=== PATIENT | male | born 1995 | race Caucasian/White ===

== ENCOUNTER 2023-12-10 13:10 | Inpatient (IN) | payer BC, MEDICAID, SELFPAY ==
[2023-12-10 13:21] VITALS: BP 135/78; PULSE 60; RESP 17; TEMP 36.6; O2SAT 100
[2023-12-10 13:30] VITALS: BMI 26.6
[2023-12-10] MEDS: calcium carbonate 500 mg Chew Tablet 1000 MG PO ×2 (13:50→23:49)
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
[2023-12-10 20:55] VITALS: BP 138/78; PULSE 68; RESP 16; TEMP 37.2; O2SAT 97
[2023-12-10] MEDS: divalproex DR 250 mg Tablet PO (21:24)
--- NOTE | 2023-12-11 06:21 | PC.NURSE ---
pt vs not collected nurse notified resp 18
[2023-12-11] MEDS: calcium carbonate 500 mg Chew Tablet 1000 MG PO ×3 (07:23→20:49)
[2023-12-11] MEDS: divalproex DR 250 mg Tablet PO ×3 (09:09→20:49)
[2023-12-11 14:00] VITALS: BP 120/78; PULSE 102; RESP 18; TEMP 37; O2SAT 98
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
[2023-12-11 20:43] VITALS: BP 124/78; PULSE 58; RESP 16; TEMP 36.8; O2SAT 99
[2023-12-12 04:30] VITALS: BP 128/64; PULSE 68; RESP 16; TEMP 36.9; O2SAT 97
[2023-12-12] MEDS: calcium carbonate 500 mg Chew Tablet 1000 MG PO ×2 (05:22→09:33)
[2023-12-12] MEDS: divalproex DR 250 mg Tablet PO ×3 (07:54→21:45)
[2023-12-12 14:00] VITALS: BP 103/67; PULSE 80; RESP 16; TEMP 36.7; O2SAT 98
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
[2023-12-12 20:58] VITALS: BP 113/76; PULSE 62; RESP 18; TEMP 37.2; O2SAT 98
[2023-12-12] MEDS: alum-mag-hydroxide-sime 30 mL UDC PO (21:45)
[2023-12-13] MEDS: calcium carbonate 500 mg Chew Tablet 1000 MG PO ×5 (00:53→19:10)
[2023-12-13 06:00] VITALS: BP 119/73; PULSE 94; RESP 18; TEMP 36.9; O2SAT 99
[2023-12-13] MEDS: divalproex DR 250 mg Tablet PO ×3 (08:35→19:10)
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
[2023-12-13 14:00] VITALS: BP 125/78; PULSE 78; RESP 16; TEMP 36.7; O2SAT 99
[2023-12-13] MEDS: pantoprazole DR 40 mg Tablet PO (19:10)
[2023-12-13 21:05] VITALS: BP 128/86; PULSE 74; RESP 18; TEMP 36.7; O2SAT 99
[2023-12-14 06:00] VITALS: BP 129/80; PULSE 107; RESP 17; TEMP 36.7; O2SAT 97
[2023-12-14] MEDS: divalproex DR 250 mg Tablet PO ×3 (10:18→20:04)
[2023-12-14] MEDS: pantoprazole DR 40 mg Tablet PO (10:19)
[2023-12-14 14:00] VITALS: BP 124/82; PULSE 75; RESP 16; TEMP 36.6; O2SAT 98
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
[2023-12-14 19:58] VITALS: BP 119/73; PULSE 76; RESP 17; TEMP 36.9; O2SAT 99
[2023-12-15] MEDS: calcium carbonate 500 mg Chew Tablet 1000 MG PO ×2 (03:18→20:02)
[2023-12-15 06:00] VITALS: BP 113/69; PULSE 73; RESP 17; TEMP 36.7; O2SAT 98
[2023-12-15] MEDS: divalproex DR 250 mg Tablet PO ×3 (09:05→20:00)
[2023-12-15] MEDS: pantoprazole DR 40 mg Tablet PO (09:05)
[2023-12-15 14:00] VITALS: BP 113/77; PULSE 69; RESP 18; TEMP 36.6; O2SAT 99
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
[2023-12-15 19:36] VITALS: BP 117/77; PULSE 69; RESP 16; TEMP 36.6; O2SAT 99
[2023-12-16] MEDS: calcium carbonate 500 mg Chew Tablet 1000 MG PO (00:33)
[2023-12-16 06:00] VITALS: BP 135/73; PULSE 82; RESP 18; TEMP 36.6; O2SAT 98
[2023-12-16] MEDS: pantoprazole DR 40 mg Tablet PO (08:27)
[2023-12-16] MEDS: divalproex DR 250 mg Tablet PO ×3 (08:27→20:19)
[2023-12-16 14:00] VITALS: BP 119/78; PULSE 80; RESP 16; TEMP 36.6; O2SAT 98
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
[2023-12-16] MEDS: haloperidol decanoate 100 mg/mL INJ 1 mL 50 MG IM (17:38)
[2023-12-16 19:22] VITALS: BP 129/81; PULSE 69; RESP 18; TEMP 36.6; O2SAT 98
[2023-12-17 06:00] VITALS: BP 122/76; PULSE 76; RESP 16; TEMP 36.5; O2SAT 98
[2023-12-17] MEDS: divalproex DR 250 mg Tablet PO ×3 (09:21→21:09)
[2023-12-17] MEDS: pantoprazole DR 40 mg Tablet PO (09:21)
[2023-12-17 14:00] VITALS: BP 108/70; PULSE 71; RESP 16; TEMP 36.6; O2SAT 99
[2023-12-17 14:59] VITALS: BP 108/70; PULSE 71; RESP 16; TEMP 36.6; O2SAT 99
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
[2023-12-17 19:45] VITALS: BP 113/74; PULSE 70; RESP 18; TEMP 36.7; O2SAT 98
[2023-12-18 06:00] VITALS: BP 100/61; PULSE 72; RESP 16; TEMP 36.7; O2SAT 97
[2023-12-18] MEDS: pantoprazole DR 40 mg Tablet PO (09:16)
[2023-12-18] MEDS: divalproex DR 250 mg Tablet PO (09:16)
[2023-12-18 11:35] VITALS: BP 100/61; PULSE 72; RESP 16; TEMP 36.7; O2SAT 97
--- NOTE | 2023-12-18 11:39 | W.PM.NPUDCS ---
Diagnoses at Discharge Discharge Diagnosis (1) Intermittent explosive disorder in adult: Status: Acute Reason for Visit Reason for Visit: SI Involuntary Hold Information 96 Hour Hold: 96 Hour Involuntary Admission: No Mental Status Exam MSE Comments: This is a well-nourished well-developed short white male in hospital scrubs with limited grooming and eye contact. Notable tattooing on exposed skin including neck. No abnormal movements except for psychomotor retardation. Mostly cooperative with exam in mild distress. Speech was decreased rate and volume somewhat monotone. Mood described as okay, affect congruent and somewhat less odd. Thought process linear. Thought content: Patient denied suicidal or homicidal ideation, there were no delusions reported but he did appear less guarded, he denied any auditory or visual hallucinations but did not appear to be attending to internal stimuli. Attention and concentration were improving and memory seemed mostly reliable but none were formally tested. He is alert and oriented to person and place. Insight, judgment and impulse control appear impaired. Discharge Data Vitals: Last Vital Signs Temp 98.0 F 12/18/23 11:35 Pulse 72 12/18/23 11:35 Resp 16 12/18/23 11:35 BP 100/61 12/18/23 11:35 Pulse Ox 97 12/18/23 11:35 O2 Del Method Room Air 12/18/23 06:00 Discharge Plan Discharge Patient Disposition: Home Condition: Stable Prescriptions: New divalproex 250 mg Tablet,Delayed Release (Dr/Ec) 250 mg PO TID 30 Days Qty: 90 1RF benztropine 1 mg Tablet 1 mg PO BID PRN (Reason: Mild Extrapyramidal symptoms) 30 Days Qty: 60 1RF Rx Instructions: 1/2 to 1 tablet p.o. twice daily as needed for EPS pantoprazole 40 mg Tablet,Delayed Release (Dr/Ec) 40 mg PO DAILY 30 Days Qty: 30 1RF haloperidol decanoate [Haldol Decanoate] 50 mg/mL solution 50 mg IM ONCE 14 Days Qty: 1 3RF Rx Instructions: Next injection 12/30/2023 then as directed Discontinued benztropine 0.5 mg tablet 0.5 mg PO BEDTIME Discharge Orders: Discharge Order (Routine); Ordered 12/18/23 Ordered By: Malcolm Godinez Referrals: [facility] [Other] - 12/22/23 2:30 pm (Appointment with Dr Holt) Discharge Diet: Regular Discharge Activity: Resume usual activity Patient Instructions: Benztropine Mesylate (By mouth), Haloperidol (By injection) (Haldol, Haldol Decanoate, Novaplus..., Divalproex (By mouth) (Depakote, Depakote ER, Depakote Sprinkles), Opioid Safety Discharge Attestations NPU Time Spent in Discharge Care*: less than 30 min Specific Discharge Activities: Specific discharge activities: educating patient, discussing with family preservation caseworker/social workers/dc planners, documenting/other paperwork and evaluating patient/reviewing data Coding Level of Care Code Acute Code for Chg Fwd Diagnoses Intermittent explosive disorder in adult F63.81
== END 2023-12-18 11:44 | disposition home or self-care (01) | DRG 883 ==
PROVIDERS: Admitting Provider Psychiatry & Neurology Psychiatry; Visit Provider Psychiatry & Neurology Psychiatry
DX: F63.81 Intermittent explosive disorder (principal); R45.851 Suicidal ideations; R45.850 Homicidal ideations; F12.90 Cannabis use, unspecified, uncomplicated; Z91.128 Patient's intentional underdosing of medication regimen for other reason
CPT/HCPCS: 96372; 97150; 97165; J1631